=== PATIENT | female | born 1960 | race Caucasian/White ===

== ENCOUNTER 2022-01-20 10:40 | Emergency (ER) | payer OTHER, SELFPAY ==
--- NOTE | 2022-01-20 10:56 | ED.EAR ---
HPI - Ear Problem General Chief complaint: Ear Stated complaint: ear pain Time Seen by Provider: 01/20/22 10:55 Source: patient Mode of arrival: ambulatory Limitations: no limitations History of Present Illness HPI Narrative: Ms. Beckett is a 61-year-old female patient presenting to the clinic today with complaints of ear pain that began last night. She reports she developed left ear pain and also some lymph node swelling just below the left ear last night. Reports the pain is an achy pain. She denies any fever or chills. Related Data Home Medications Medication Instructions Recorded Confirmed escitalopram oxalate 20 mg tablet 20 mg DAILY 01/20/22 01/20/22 lisinopril 10 1 tablet DAILY 01/20/22 01/20/22 mg-hydrochlorothiazide 12.5 mg tablet meloxicam 7.5 mg tablet 7.5 mg DAILY 01/20/22 01/20/22 metoprolol succinate 25 mg 25 mg PO DAILY 01/20/22 01/20/22 tablet,extended release 24 hr rosuvastatin 20 mg tablet 20 mg DAILY 01/20/22 01/20/22 Allergies Allergy/AdvReac Type Severity Reaction Status Date / Time Penicillins Allergy Swelling Verified 01/20/22 11:10 Review of Systems Review of Systems: Pertinent positives per HPI. Patient denies any fever, chills, rash, headache, visual changes, dizziness, cough, runny nose, sore throat, shortness of breath, chest pain, palpitations, nausea, vomiting, diarrhea, constipation, abdominal pain, or any urinary issues. PMFSH Comments At the time of my signature, I reviewed and agree with the nursing past medical, surgical, social, and family history. There is no relevant family history pertinent to the patient complaint. Exam Narrative: General: Well-developed, well nourished, in no apparent distress Head: Normocephalic, atraumatic Eyes: Pupils equally round and reactive to light bilaterally, EOM intact, sclera and conjunctive clear, no discharge, lids normal Ears: Right TM intact and clear, left TM intact, mild bulging, dull, ear canals clear, no drainage, grossly hearing normal. Lymph node swelling noted just below the left earlobe Nose: Nares patent, clear nasal drainage , mild to moderate inflammation, no sinus tenderness. Mouth: Oropharynx without lesions or masses, good dentition, MMM. Neck: Supple, trachea midline, no enlargement of anterior or posterior cervical nodes, no thyroid masses or goiter palpable. Cardio: Regular rate and rhythm, s1 and s2 normal, no murmur appreciated. Resp: Clear to auscultation bilaterally anteriorly and posteriorly, no rhonchi, rales, wheezing or rubs Course Course Emergency Course: Portions of this record may have been created with voice recognition software. Level of Care: Express Care Visit Vital Signs Vital signs: Vital signs reviewed Medical Decision Making MDM Narrative Medical decision making narrative: At the time of visit patient is resting comfortably on the exam table. I suspect patient has left-sided eustachian tube dysfunction with some lymph node swelling. We will give her a course of prednisone for the nasal congestion and pressure behind her ear. I do not see any source of infection. Supportive measures were discussed with the patient she voiced understanding of discharge instructions and agrees to treatment plan. Differential Diagnosis Differential Diagnosis: Otitis media, otitis externa, upper respiratory infection, otalgia, eustachian tube dysfunction Discharge Plan Discharge Clinical Impression: Swelling of lymph node Dysfunction of eustachian tube Qualifiers: Laterality: left Qualified Code(s): H69.82 - Other specified disorders of Eustachian tube, left ear Patient Disposition: Home, Self-Care Condition: Stable Instructions: Antibiotic Form, Lymphadenopathy (ED), Earache (ED) Additional Instructions: No sign of infection in the ear or throat. Take prescription medications only as prescribed-prednisone Increase fluids and stay well hydrated Tylenol/motrin for pain/fever
[2022-01-20 11:05] VITALS: BP 136/76; PULSE 73; RESP 18; TEMP 36.6; O2SAT 97
== END 2022-01-20 11:17 | disposition home or self-care (01) ==
PROVIDERS: Emergency Provider Nurse Practitioner Family
DX: R59.9 Enlarged lymph nodes, unspecified (principal); H69.92 Unspecified Eustachian tube disorder, left ear; E78.00 Pure hypercholesterolemia, unspecified; I10 Essential (primary) hypertension; F41.9 Anxiety disorder, unspecified; F32.A Depression, unspecified
CPT/HCPCS: 99213; G0463